=== PATIENT | female | born 1965 | race Caucasian/White ===

== ENCOUNTER 2016-10-21 05:51 | Observation (INO) | payer BC, MEDICARE ==
[~2016-10-21] VITALS: Ht 172.7 cm; Wt 125.6 kg
[~2016-10-21 05:51] MED LIST: ACET-1757 PO; ALBU8.5H3 INH; ASCO10007 PO; B CO1TAB12 PO; BUSP10TA PO; CHOL40002 PO; DIPH25CA61 PO; DOCU-144 PO; ESCI20TA10 PO; FAMO20TA37 PO; FENO145T32 PO; GABA800T2 PO; IBUP-1222 PO; LINA145C PO; MECL25TA4 PO; MELA1TAB15 PO; METF500T4 PO; MORP-52 PO; MULT-516 PO; OMEP-110 PO; ONDA8TAB9 PO; OXYC-229 PO; PHEN10TA4 PO; POTA99TA PO; RANI-276 PO; SUMA100T4 PO; TIZA4TAB9 PO; TRAZ50TA18 PO; ZOLP10TA PO; lidocaine patch TD
[2016-10-21] MEDS ORDERED: MIDAZOLAM 1 MG/ML, 2ML ONE (06:33)
[2016-10-21] MEDS ORDERED: FENTANYL PF 250 MCG/5ML ONE ×2 (06:33→08:23)
[2016-10-21] MEDS: LACTATED RINGERS 1,000 ML IV SCH ×5 (06:49→17:41)
[2016-10-21] MEDS ORDERED: BUPIVACAINE/PF 0.25% ONE (06:53)
[2016-10-21] MEDS ORDERED: NEOSPORIN OINT, 15GM ONE (06:53)
[2016-10-21] MEDS ORDERED: HYDROmorphone 1 MG/ML, 1ML IV PRN (07:00)
[2016-10-21] MEDS ORDERED: ALBUTEROL SULFATE 2.5 MG/3 ML NPPB PRN (07:00)
[2016-10-21] MEDS ORDERED: ACETAMINOPHEN 325 MG TABLET PO PRN (07:00)
[2016-10-21] MEDS ORDERED: METOCLOPRAMIDE 5 MG/ML, 2ML IV PRN (07:00)
[2016-10-21] MEDS ORDERED: PROMETHAZINE 25 MG/ML, 1ML IV PRN (07:00)
[2016-10-21] MEDS ORDERED: hydrALAzine 20 MG/ML, 1ML IV PRN (07:00)
[2016-10-21] MEDS ORDERED: FENTANYL PF 100 MCG/2ML IV PRN (07:00)
[2016-10-21] MEDS ORDERED: LABETALOL 5MG/ML, 20ML IV PRN (07:00)
[2016-10-21] MEDS ORDERED: ONDANSETRON 2MG/ML, 2ML IVPush PRN ×2 (07:00→10:00)
[2016-10-21] MEDS ORDERED: OXYcodone 5 MG/5 ML ORAL.SOL UDC PO PRN (07:00)
[2016-10-21] MEDS ORDERED: EPINEPHRINE 1 MG/ML, 1ML ONE (07:26)
[2016-10-21] MEDS ORDERED: ROCURONIUM 10 MG/ML ONE (07:36)
[2016-10-21] MEDS ORDERED: PROPOFOL 10 MG/ML, 20ML ONE (07:36)
[2016-10-21] MEDS ORDERED: CEFAZOLIN 1,000 MG ONE (07:36)
[2016-10-21] MEDS ORDERED: NEOSTIGMINE 1 MG/ML, 10ML ONE (07:36)
[2016-10-21] MEDS ORDERED: ONDANSETRON 2MG/ML, 2ML ONE (07:36)
[2016-10-21] MEDS ORDERED: GLYCOPYRROLATE 0.2MG/1ML ONE (07:36)
[2016-10-21] MEDS ORDERED: FLUORESCEIN SODIUM 500 MG/5 ML ONE (09:06)
[2016-10-21] MEDS: morphine SULFATE 10 MG/ML, 1ML IV PRN ×5 (09:52→12:25)
[2016-10-21] MEDS ORDERED: PROMETHAZINE 25 MG/ML, 1ML ONE (09:53)
[2016-10-21] MEDS ORDERED: KETOROLAC 30 MG/1 ML ONE (09:53)
[2016-10-21] MEDS ORDERED: morphine SULFATE 10 MG/ML, 1ML ONE (09:53)
[2016-10-21] MEDS ORDERED: OXYcodone 5 MG/5 ML ORAL.SOL UDC ONE (09:53)
[2016-10-21] MEDS: KETOROLAC 30 MG/1 ML IVPush PRN ×3 (09:55→12:26)
[2016-10-21] MEDS ORDERED: OxyconTIN ER 20 MG TAB.ER PO SCH (10:00)
[2016-10-21] MEDS ORDERED: OxyconTIN ER 20 MG TAB.ER PO ONE (10:00)
[2016-10-21] MEDS ORDERED: MORPHINE SULFATE 4 MG/ML, 1ML ONE (10:46)
[2016-10-21] MEDS ORDERED: hydrALAzine 20 MG/ML, 1ML ONE (10:48)
[2016-10-21 11:40] VITALS: BP 122/69
[2016-10-21] MEDS: OXYcodone/APAP 10/325MG TABLET PO PRN ×3 (12:23→23:07)
[2016-10-21] MEDS: SIMETHICONE 80 MG CHEW TAB PO SCH ×2 (16:00→21:30)
[2016-10-21] MEDS: morphine SULFATE 10 MG/ML, 1ML IVPush PRN ×3 (16:48→19:31)
[2016-10-21 16:52] VITALS: BP 122/70
[2016-10-21 20:00] VITALS: BP 140/75
[2016-10-21] MEDS: GABAPENTIN 400 MG CAPSULE PO SCH (21:30)
[2016-10-21] MEDS: BUSPIRONE 10 MG TABLET PO SCH (21:30)
[2016-10-21] MEDS: DOCUSATE 100 MG CAPSULE PO SCH (21:30)
[2016-10-21] MEDS: OMEPRAZOLE 20 MG CAPSULE.DR PO SCH (21:30)
[2016-10-21] MEDS: OxyconTIN ER 15 MG TAB.ER PO SCH (21:30)
[2016-10-21] MEDS ORDERED: ALBUTEROL/IPRATROPIUM 2.5MG/0.5MG, 3 ML ONE (22:05)
[2016-10-21 23:14] VITALS: BP 124/65
[2016-10-22] MEDS ORDERED: TRAM50TA2 PO (00:49)
[2016-10-22] MEDS ORDERED: ACET650S21 PO (00:51)
[2016-10-22] MEDS ORDERED: ACET325T14 PO (00:53)
[2016-10-22] MEDS ORDERED: SENN8.6T4 PO (00:55)
[2016-10-22] MEDS ORDERED: DOCU-30 PO (00:55)
[2016-10-22] MEDS: LACTATED RINGERS 1,000 ML IV SCH ×3 (01:02→15:35)
[2016-10-22] MEDS: OXYcodone/APAP 10/325MG TABLET PO PRN ×5 (02:42→15:35)
[2016-10-22 03:48] VITALS: BP 112/71
[2016-10-22 04:58] LABS: HEMATOCRIT 32.7 % (34.6-47.8)
[2016-10-22] MEDS: GABAPENTIN 400 MG CAPSULE PO SCH ×3 (06:02→15:35)
[2016-10-22] MEDS: ALBUTEROL/IPRATROPIUM 2.5MG/0.5MG, 3 ML NPPB SCH ×3 (07:11→15:02)
[2016-10-22] MEDS ORDERED: metFORMIN 500 MG TABLET PO SCH (07:30)
[2016-10-22 07:35] VITALS: BP 125/78
[2016-10-22] MEDS: OMEPRAZOLE 20 MG CAPSULE.DR PO SCH (07:43)
[2016-10-22] MEDS: BUSPIRONE 10 MG TABLET PO SCH (09:37)
[2016-10-22] MEDS: DOCUSATE 100 MG CAPSULE PO SCH (09:37)
[2016-10-22] MEDS: OxyconTIN ER 15 MG TAB.ER PO SCH (09:37)
[2016-10-22] MEDS: SIMETHICONE 80 MG CHEW TAB PO SCH ×2 (09:37→15:35)
[2016-10-22 13:25] VITALS: BP 120/77
[2016-10-22] MEDS ORDERED: DOCUSATE 100 MG CAPSULE PO SCH (21:00)
== END 2016-10-22 18:20 | disposition home or self-care (01) ==
LOC: OUT 05:51 → 4NOR 11:17 → OUT 21:58 → 4NOR 21:58
PROVIDERS: ADMIT Obstetrics & Gynecology Maternal & Fetal Medicine; ATTEND Obstetrics & Gynecology Maternal & Fetal Medicine
DX: N92.0 Excessive and frequent menstruation with regular cycle (principal)
CPT/HCPCS: 36415; 58552; 82962; 85014; 85018; 88307; 94640; 96374; 96376; G0378; J0171; J0360; J0690; J1885; J2250; J2270; J2405; J2550; J2704; J2710; J3010; J3490; J7120; J7620